=== PATIENT | male | born 1970 ===

== ENCOUNTER → 2018-03-12 | Outpatient (CLI) | payer OTHER ==
[2018-03-13 09:23] LABS: Adenovirus F 40/41 Not Detected (NOT DETECT); Astrovirus Not Detected (NOT DETECT); Campylobacter Sp Not Detected (NOT DETECT); Cryptosporidium Not Detected (NOT DETECT); Cyclospora Cayetanensis Not Detected (NOT DETECT); E. Coli O157 Not Detected (NOT DETECT); Entamoeba Histolytica Not Detected (NOT DETECT); Enteropathogenic E. coli-EPEC Not Detected (NOT DETECT); Giardia Lamblia Not Detected (NOT DETECT); Norovirus GI/GII Not Detected (NOT DETECT); Plesiomonas Shigelloides Not Detected (NOT DETECT); Rotavirus A Not Detected (NOT DETECT); Salmonella Sp Not Detected (NOT DETECT); Sapovirus Not Detected (NOT DETECT); Shiga Toxin-prod E. coli-STEC Not Detected (NOT DETECT); Shigella/Enteroin E. coli-EIEC Not Detected (NOT DETECT); Vibrio Cholerae Not Detected (NOT DETECT); Vibrio Sp Not Detected (NOT DETECT); Yersinia Enterocolitica Not Detected (NOT DETECT)
[2018-03-13 14:22] LABS: Enteroaggregative E. coli-EAEC Detected (NOT DETECT); Enterotoxigenic E. coli-ETEC Detected (NOT DETECT)
== END ==
LOC: LAB 09:21 → LAB SHORT 09:21
PROVIDERS: Nurse Practitioner Family
DX: R19.7 Diarrhea, unspecified (principal)
CPT/HCPCS: 87507

== ENCOUNTER 2020-09-10 16:48 | Emergency (ER) | payer OTHER ==
[~2020-09-10] VITALS: Ht 165.1 cm; Wt 72.6 kg
[2020-09-10] MEDS ORDERED: Amoxicillin500 MG PO (16:56)
== END 2020-09-10 17:01 | disposition home or self-care (01) ==
LOC: ER 16:48
DX: K04.7 Periapical abscess without sinus (principal)
CPT/HCPCS: 99282

== ENCOUNTER → 2022-01-18 | Outpatient (CLI) | payer OTHER ==
[~2022-01-18] MED LIST: Amoxicillin500 MG PO
[2022-01-18 14:09] LABS: Stool Occult Blood Guaiac 1 Neg (Neg)
== END ==
LOC: LAB SHORT 06:45
PROVIDERS: Physician Assistant Medical
DX: Z12.11 Encounter for screening for malignant neoplasm of colon (principal)
CPT/HCPCS: 82270

== ENCOUNTER → 2023-09-29 | Outpatient (CLI) | payer OTHER ==
[2023-09-29 20:05] LABS: BASOPHILS ABSOLUTE AUTO 0.04 K/mm3 (0.00-0.23); BASOPHILS PERCENT AUTO 1 % (0-2); EOSINOPHILS ABSOLUTE AUTO 0.05 K/mm3 (0.00-0.68); EOSINOPHILS PERCENT AUTO 1 % (0-6); Hematocrit 44.5 % (37.0-53.0); IMMATURE GRAN ABSOLUTE AUTO 0.01 K/mm3 (0.00-0.10); IMMATURE GRAN PERCENT AUTO 0 % (0-1); LYMPHOCYTES ABSOLUTE AUTO 1.84 K/mm3 (0.84-5.20); LYMPHOCYTES PERCENT AUTO 26 % (21-46); MONOCYTES ABSOLUTE AUTO 0.51 K/mm3 (0.16-1.47); MONOCYTES PERCENT AUTO 7 % (4-13); Mean Corpuscular HGB 30.3 pg (26.0-34.0); Mean Corpuscular HGB Conc 33.7 g/dL (31.5-36.5); Mean Corpuscular Volume 90 fL (80-100); Mean Platelet Volume 9.7 fL (9.1-12.4); NEUTROPHILS ABSOLUTE AUTO 4.52 K/mm3 (1.96-9.15); NEUTROPHILS PERCENT AUTO 65 % (41-73); Platelet Count 280 K/mm3 (150-400); RDW Coefficient Variation 12.8 % (11.7-14.2); RDW Standard Deviation 42.2 fL (35.1-46.3); Red Blood Cell Count 4.95 M/mm3 (4.30-5.90); White Blood Cell Count 6.97 K/mm3 (4.00-11.30)
[2023-10-02 13:09] LABS: A/G RATIO 1.7 (1.2-2.2); BILIRUBIN, TOTAL 0.5 mg/dL (0.0-1.2); CALCIUM, SERUM 9.8 mg/dL (8.7-10.2); CREATININE, SERUM 0.69 mg/dL (0.76-1.27); GLOBULIN, TOTAL 2.8 g/dL (1.5-4.5); POTASSIUM, SERUM 4.4 mmol/L (3.5-5.2); PROTEIN, TOTAL, SERUM 7.6 g/dL (6.0-8.5)
== END ==
LOC: LAB SHORT 18:57 → LAB 18:57
PROVIDERS: Nurse Practitioner Family
DX: I10 Essential (primary) hypertension (principal); R73.03 Prediabetes
CPT/HCPCS: 80053; 83036; 85025

== ENCOUNTER 2024-06-30 02:17 | Inpatient (IN) | payer OTHER ==
[~2024-06-30] VITALS: Ht 160 cm; Wt 65.7 kg
[2024-06-30 03:06] LABS: BASOPHILS ABSOLUTE AUTO 0.02 K/mm3 (0.00-0.23); BASOPHILS PERCENT AUTO 0 % (0-2); EOSINOPHILS ABSOLUTE AUTO 0.13 K/mm3 (0.00-0.68); EOSINOPHILS PERCENT AUTO 1 % (0-6); Hematocrit 32.3 % (37.0-53.0); Hemoglobin 10.7 g/dL (13.5-17.5); IMMATURE GRAN ABSOLUTE AUTO 0.03 K/mm3 (0.00-0.10); IMMATURE GRAN PERCENT AUTO 0 % (0-1); LYMPHOCYTES ABSOLUTE AUTO 1.13 K/mm3 (0.84-5.20); LYMPHOCYTES PERCENT AUTO 11 % (21-46); MONOCYTES ABSOLUTE AUTO 1.11 K/mm3 (0.16-1.47); MONOCYTES PERCENT AUTO 11 % (4-13); Mean Corpuscular HGB 29.3 pg (26.0-34.0); Mean Corpuscular HGB Conc 33.1 g/dL (31.5-36.5); Mean Corpuscular Volume 89 fL (80-100); Mean Platelet Volume 8.6 fL (9.1-12.4); NEUTROPHILS ABSOLUTE AUTO 7.72 K/mm3 (1.96-9.15); NEUTROPHILS PERCENT AUTO 76 % (41-73); Platelet Count 460 K/mm3 (150-400); RDW Coefficient Variation 12.6 % (11.7-14.2); RDW Standard Deviation 41.2 fL (35.1-46.3); Red Blood Cell Count 3.65 M/mm3 (4.30-5.90); White Blood Cell Count 10.14 K/mm3 (4.00-11.30)
[2024-06-30 03:44] LABS: Albumin, Blood 2.8 g/dL (3.4-5.0); Albumin/Globulin Ratio 0.6 (0.8-1.8); Bilirubin, Total 0.3 mg/dL (0.1-1.0); Calcium, Blood 8.3 mg/dL (8.5-10.1); Creatinine, Blood 3.61 mg/dL (0.60-1.20); Globulin, Blood 4.9 g/dL (2.2-4.0); Potassium, Blood 4.4 mmol/L (3.5-5.5); Total Protein, Blood 7.7 g/dL (6.4-8.2)
[2024-06-30 04:10] LABS: Source, Urine Clean Catch
[2024-06-30 04:21] LABS: Bilirubin, Urine Neg (Neg); Blood, Urine 5+ (Neg); Glucose Qualitative, Urine Neg (Neg); Ketones, Urine Neg (Neg); Leukocyte Esterase, Urine Neg (Neg); Nitrite, Urine Neg (Neg); Protein, Urine 3+ (Neg); Urobilinogen, Urine NORM (Normal)
[2024-06-30 04:38] LABS: Color, Urine Pale Yellow (P-Yellow)
[2024-06-30 04:39] LABS: Appearance, Urine Clear (Clear)
[2024-06-30 04:40] LABS: Bacteria Few /hpf; Red Blood Cells, Urine 50-100 /hpf (0-2); Squamous Epithelial Cells Rare /hpf (Few)
[2024-06-30] MEDS ORDERED: Loperamide HCl 2 MG Cap PO PRN (05:40)
[2024-06-30] MEDS ORDERED: FLU VACC TS2024-25(6MOS UP)/PF 45 MCG/0.5 ML SYRINGE IM SCH (05:45)
[2024-06-30] MEDS ORDERED: FentaNYL Citrate 50 MCG/ML 2 ML Injection IV PRN (05:45)
[2024-06-30] MEDS ORDERED: Ondansetron HCl 2 MG / ML 2ML Vial IV PRN (05:45)
[2024-06-30] MEDS ORDERED: NS 1,000 ML IV SCH ×2 (05:45→09:15)
[2024-06-30] MEDS ORDERED: Heparin Sodium,Porcine 5,000 UNIT/0.5 ML SDV SC SCH (09:00)
[2024-06-30 10:19] VITALS: BP 153/79
[2024-06-30 14:42] LABS: Bun/Creatinine Ratio 13.4 (12.0-20.0); Calcium, Blood 8.5 mg/dL (8.5-10.1); Creatinine, Blood 3.58 mg/dL (0.60-1.20); Potassium, Blood 4.4 mmol/L (3.5-5.5)
[2024-06-30 15:56] VITALS: BP 146/75
--- NOTE | 2024-06-30 17:36 | NUR ---
SHIFT SUMMARY PATIENT ARRIVED TO FLOOR FROM ER. NPO, ADVANCED TO CLEAR LIQUID, TOLERATING WELL SO FAR. C/O MILD NAUSEA AND RIGHT FLANK PAIN. INDEPENDENT IN ROOM. A/O X4. DECLINING PHONE DEPUTY COUNTY COUNSEL AT THIS TIME, IT IS IN ROOM. UPDATES PROVIDED TO FAMILY PER PATIENT REQUEST. CALL LIGHT IN REACH, ABLE TO MAKE NEEDS KNOWN. CARES ONGOING
[2024-06-30 19:39] VITALS: BP 134/74
[2024-07-01] MEDS ORDERED: NS 1,000 ML IV ONE (02:32)
[2024-07-01 03:39] VITALS: BP 135/73
[2024-07-01 05:55] LABS: BASOPHILS ABSOLUTE AUTO 0.03 K/mm3 (0.00-0.23); BASOPHILS PERCENT AUTO 0 % (0-2); EOSINOPHILS ABSOLUTE AUTO 0.02 K/mm3 (0.00-0.68); EOSINOPHILS PERCENT AUTO 0 % (0-6); Hematocrit 30.9 % (37.0-53.0); Hemoglobin 10.3 g/dL (13.5-17.5); IMMATURE GRAN ABSOLUTE AUTO 0.06 K/mm3 (0.00-0.10); IMMATURE GRAN PERCENT AUTO 1 % (0-1); LYMPHOCYTES ABSOLUTE AUTO 0.89 K/mm3 (0.84-5.20); LYMPHOCYTES PERCENT AUTO 7 % (21-46); MONOCYTES ABSOLUTE AUTO 1.28 K/mm3 (0.16-1.47); MONOCYTES PERCENT AUTO 11 % (4-13); Mean Corpuscular HGB 29.5 pg (26.0-34.0); Mean Corpuscular HGB Conc 33.3 g/dL (31.5-36.5); Mean Corpuscular Volume 89 fL (80-100); Mean Platelet Volume 8.7 fL (9.1-12.4); NEUTROPHILS ABSOLUTE AUTO 9.92 K/mm3 (1.96-9.15); NEUTROPHILS PERCENT AUTO 81 % (41-73); Platelet Count 444 K/mm3 (150-400); RDW Standard Deviation 42.3 fL (35.1-46.3); Red Blood Cell Count 3.49 M/mm3 (4.30-5.90)
--- NOTE | 2024-07-01 05:55 | NUR ---
SHIFT SUMMARY PT ALERT AND ORIENTED TIMES 4. PT IS ABLE TO MAKE NEEDS KNOWN TO STAFF. PT WAS RECEPTIVE TO CARE, DENIES PAIN. TELE RHYTHM S/R 82. PT CONTINUES TO HAVE NS 1000 ML INFUSION. PRESENTLY ON 2 OF 3 BAGS. PT TOLERATING WELL, NO VOCAL COMPLAINTS AND APPEARS TO BE SLEEPING THROUGH THE NIGHT WITHOUT ISSUE. REQUEST FROM PT WAS TO TURN THE HEAT UP. BED IN LOW POSITION, CALL LIGHT WITHIN REACH, RAILS TIMES 2.
[2024-07-01 06:17] LABS: Albumin, Blood 2.1 g/dL (3.4-5.0); Albumin/Globulin Ratio 0.5 (0.8-1.8); Bilirubin, Total 0.4 mg/dL (0.1-1.0); Bun/Creatinine Ratio 11.8 (12.0-20.0); Calcium, Blood 7.8 mg/dL (8.5-10.1); Creatinine, Blood 3.8 mg/dL (0.60-1.20); Globulin, Blood 4.6 g/dL (2.2-4.0); Potassium, Blood 4.2 mmol/L (3.5-5.5); Total Protein, Blood 6.7 g/dL (6.4-8.2)
[2024-07-01 07:10] VITALS: BP 142/82
[2024-07-01] MEDS ORDERED: NS 1,000 ML IV SCH (13:15)
[2024-07-01 13:54] LABS: International Normalized Ratio 1.08; Prothrombin Time Results 11.5 Sec (9.7-11.5)
[2024-07-01 14:21] LABS: Albumin, Blood 2.2 g/dL (3.4-5.0); Anion Gap 11 mmol/L (3-11); Blood Urea Nitrogen 46 mg/dL (8-24); Bun/Creatinine Ratio 11.6 (12.0-20.0); CO2, Blood 21 mmol/L (21-32); Calcium, Blood 7.8 mg/dL (8.5-10.1); Chloride, Blood 109 mmol/L (98-108); Creatinine, Blood 3.98 mg/dL (0.60-1.20); Glomerular Filtration Rate 17 (60-); Glucose, Blood 147 mg/dL (70-99); Lactate Dehydrogenase (Ld),Bld 203 U/L (100-240); Phosphorus, Blood 3.9 mg/dL (2.5-4.9); Sodium, Blood 137 mmol/L (136-145)
[2024-07-01 16:16] VITALS: BP 154/85
--- NOTE | 2024-07-01 17:06 | NUR ---
SHIFT SUMMARY: PT AOX4 IN BED RESTING. COMPLAINED OF SOME STOMACH CRAMPS AND PAIN GOT A KPAD AND PT SAYS PAIN WAS SOOTHED WITH IT. HAS IT OVER ABDOMEN. COMPLAINS OF CONSTIPATION AND FEELING COLD DESPITE COMING INTO HOSPITAL FOR SEVERE DIARHEA. VERY COOPERATIVE, INDEPENDENT, AND IN GOOD MOOD AND AFFECT. PT CURRENTLY RESTING IN BED, BED IN LOWEST POSITION, CALL LIGHT IN REACH. CONTINUING CARE.
--- NOTE | 2024-07-01 18:06 | NUR ---
THIS ELECTROMECHANICAL TECHNICIAN HAS REVIEWED AND AGREES WITH ALL NOTES AND ASSESSMENTS BY ZACK PAIGE.
[2024-07-01 19:15] VITALS: BP 145/75
[2024-07-02 04:07] VITALS: BP 134/75
[2024-07-02 07:27] LABS: Albumin, Blood 2.1 g/dL (3.4-5.0); Anion Gap 13 mmol/L (3-11); Blood Urea Nitrogen 47 mg/dL (8-24); CO2, Blood 18 mmol/L (21-32); Chloride, Blood 113 mmol/L (98-108); Creatinine, Blood 4.27 mg/dL (0.60-1.20); Glomerular Filtration Rate 16 (60-); Glucose, Blood 116 mg/dL (70-99); Phosphorus, Blood 4.1 mg/dL (2.5-4.9); Sodium, Blood 140 mmol/L (136-145)
--- NOTE | 2024-07-02 07:29 | NUR ---
SHIFT SUMMARY PT IS A&OX4, PLEASANT AND COOPERATIVE WITH CARES. VSS ON RA. PER TELEMETRY PT IS SR IN THE 80'S. DENIES CP/PRESSURE OR SOB. STATES THE K-PAD IS HELPING WITH HIS STOMACH CRAMPS. DENIES THE NEED FOR ANY PO PAIN MEDICATION. PT IS UP INDEPENDENTLY IN ROOM/BR. VOIDING IN TOILET, NO BM THIS SHIFT. TOLERATING A CLEAR LIQUID DIET, NO N/V. BED IN LOWEST POSITION, CALL LIGHT WITHIN REACH.
[2024-07-02 07:52] VITALS: BP 137/80
--- NOTE | 2024-07-02 16:48 | NUR ---
SHIFT SUMMARY: PT AOX4 NO COMPLAINTS OF PAIN. ENJOYS THE KPAD FOR PAIN. DRINKING WATER AND FINISHING HIS MEALS. NO BM, TAKEN OFF CONTACT PRECAUTIONS. HAS BAG OF NS RUNNING AT 100/HR. BED IN LOWEST POSITION AND CALL LIGHT IN REACH. CONTNUING CARE.
--- NOTE | 2024-07-02 18:15 | NUR ---
THIS GAME BREEDING FARM MANAGER HAS REVIEWED AND AGREES WITH ALL NOTES AND ASSESSMENTS BY ZACK PAIGE.
--- NOTE | 2024-07-02 18:42 | NUR ---
PT REPORTED HAVING A SWOLLEN R EAR. UPON INSPECTIONS PT'S WHOLE EAR IS VERY IRRITATED AND SWOLLEN. PT REPORTS IT IS VERY PAINFUL. DR KEE WAS NOTIFIED AND [facility]
[2024-07-02] MEDS ORDERED: CefTRIAXone Sodium 1,000 MG in NS 100 ML IV SCH (18:46)
[2024-07-02 19:23] VITALS: BP 147/84
[2024-07-02] MEDS ORDERED: Acetaminophen 500 MG Tab PO PRN (20:10)
[2024-07-02 20:54] LABS: COMPLEMENT COMPONENT 3 131 mg/dL (90-180); COMPLEMENT COMPONENT 4 26 mg/dL (10-40)
[2024-07-02] MEDS ORDERED: Lactobacil 2-S.Thermo-Bifido 1 1 Cap PO SCH (21:00)
[2024-07-03 04:08] VITALS: BP 135/82
[2024-07-03 04:35] LABS: ANTI-NUCLEAR AB ANA,IGG ELISA None Detected (None Detected)
[2024-07-03 06:07] LABS: Anion Gap 15 mmol/L (3-11); Blood Urea Nitrogen 45 mg/dL (8-24); Bun/Creatinine Ratio 9.5 (12.0-20.0); CO2, Blood 17 mmol/L (21-32); Calcium, Blood 7.8 mg/dL (8.5-10.1); Chloride, Blood 112 mmol/L (98-108); Creatinine, Blood 4.73 mg/dL (0.60-1.20); Glomerular Filtration Rate 14 (60-); Glucose, Blood 119 mg/dL (70-99); Phosphorus, Blood 5.1 mg/dL (2.5-4.9); Potassium, Blood 3.9 mmol/L (3.5-5.5); Sodium, Blood 140 mmol/L (136-145)
[2024-07-03 07:15] VITALS: BP 147/83
--- NOTE | 2024-07-03 07:49 | NUR ---
SHIFT SUMMARY PT IS A&OX4, PLEASANT AND APPRECIATIVE OF CARES. VSS ON RA. PER SUPERVISOR PERSONNEL CLERKS, PT IS SR IN THE 90'S. C/O PAIN TO HIS RIGHT EAR, IT IS SWOLLEN, MEDICATED WITH PRN 500 MG PO TYLENOL. K-PAD ON HIS ABD TO HELP WITH CRAMPS. INDEPENDENT TO BR, VOIDING IN URINAL FOR STRICT I&O, PT ALSO HAD A MEDIUM PUDDING CONSISTENCY BM. TOLERATING A CLEAR LIQUID DIET, NO N/V. BED IN LOWEST POSITION, CALL LIGHT WITHIN REACH.
[2024-07-03 14:37] LABS: Source, Urine Voided
[2024-07-03 14:57] LABS: GBM, IGG MULTIPLEX BEAD ASSAY 0 AU/mL (0-19)
[2024-07-03 15:02] LABS: Appearance, Urine Clear (Clear); Bilirubin, Urine Neg (Neg); Blood, Urine 5+ (Neg); Glucose Qualitative, Urine Neg (Neg); Ketones, Urine Neg (Neg); Leukocyte Esterase, Urine Neg (Neg); Nitrite, Urine Neg (Neg); Protein, Urine 2+ (Neg); Urobilinogen, Urine NORM (Normal)
[2024-07-03 15:25] LABS: Color, Urine Pale Yellow (P-Yellow)
[2024-07-03 15:26] LABS: Bacteria Mod /hpf; Squamous Epithelial Cells Rare /hpf (Few)
[2024-07-03 15:50] VITALS: BP 163/80
[2024-07-03 16:24] VITALS: BP 163/81
--- NOTE | 2024-07-03 16:30 | NUR ---
MD CALL PAUL CARRANZA C/O FEELING COLD. FEVER 100.9. BP ELEVATED. DR KEE CALLED AND NOTIFIED. IS PLACING ORDERS.
--- NOTE | 2024-07-03 18:08 | NUR ---
SHIFT SUMMARY MR MILLER HAS RIGHT EAR REDNESS AND SWELLING. ON CONTINUOUS IVF AT 100CC/HR. UP TO THE BATHROOM INDEPENDENTLY, USING URINAL TO MEASURE OUTPUT. FEVER 100.9 THIS AFTERNOON AND BLOOD PRESSURE ELEVATED. BLOOD CULTURES DONE AND GIVEN TYLENOL 500MG. TELEMETRY DISCONTINUED. NO C/O NAUSEA, HE SAID PAIN IS CONTROLLED. BED LOW, CALL LIGHT IN REACH
[2024-07-03 19:14] LABS: ANCA IFA PATTERN c-ANCA (None Detected)
[2024-07-03 19:29] VITALS: BP 147/78
[2024-07-04 00:22] VITALS: BP 142/77
[2024-07-04 03:09] VITALS: BP 125/73
[2024-07-04 05:42] LABS: BASOPHILS ABSOLUTE AUTO 0.03 K/mm3 (0.00-0.23); BASOPHILS PERCENT AUTO 0 % (0-2); EOSINOPHILS ABSOLUTE AUTO 0.21 K/mm3 (0.00-0.68); EOSINOPHILS PERCENT AUTO 2 % (0-6); Hematocrit 29.4 % (37.0-53.0); Hemoglobin 9.8 g/dL (13.5-17.5); IMMATURE GRAN ABSOLUTE AUTO 0.04 K/mm3 (0.00-0.10); IMMATURE GRAN PERCENT AUTO 0 % (0-1); LYMPHOCYTES ABSOLUTE AUTO 0.95 K/mm3 (0.84-5.20); LYMPHOCYTES PERCENT AUTO 9 % (21-46); MONOCYTES ABSOLUTE AUTO 0.95 K/mm3 (0.16-1.47); MONOCYTES PERCENT AUTO 9 % (4-13); Mean Corpuscular HGB 29.3 pg (26.0-34.0); Mean Corpuscular HGB Conc 33.3 g/dL (31.5-36.5); Mean Corpuscular Volume 88 fL (80-100); Mean Platelet Volume 9.1 fL (9.1-12.4); NEUTROPHILS ABSOLUTE AUTO 8.27 K/mm3 (1.96-9.15); NEUTROPHILS PERCENT AUTO 79 % (41-73); Platelet Count 444 K/mm3 (150-400); RDW Coefficient Variation 13.1 % (11.7-14.2); RDW Standard Deviation 42.3 fL (35.1-46.3); Red Blood Cell Count 3.34 M/mm3 (4.30-5.90); White Blood Cell Count 10.45 K/mm3 (4.00-11.30)
[2024-07-04 06:03] LABS: Albumin, Blood 1.9 g/dL (3.4-5.0); Anion Gap 13 mmol/L (3-11); Blood Urea Nitrogen 41 mg/dL (8-24); Bun/Creatinine Ratio 9.1 (12.0-20.0); CO2, Blood 18 mmol/L (21-32); Chloride, Blood 115 mmol/L (98-108); Creatinine, Blood 4.49 mg/dL (0.60-1.20); Glomerular Filtration Rate 15 (60-); Glucose, Blood 99 mg/dL (70-99); Potassium, Blood 3.7 mmol/L (3.5-5.5); Sodium, Blood 142 mmol/L (136-145)
[2024-07-04 06:17] LABS: Adenovirus F 40/41 Not Detected (NOT DETECT); Astrovirus Not Detected (NOT DETECT); Campylobacter Sp Not Detected (NOT DETECT); Cryptosporidium Not Detected (NOT DETECT); Cyclospora Cayetanensis Not Detected (NOT DETECT); E. Coli O157 Not Detected (NOT DETECT); Entamoeba Histolytica Not Detected (NOT DETECT); Enteroaggregative E. coli-EAEC Not Detected (NOT DETECT); Enteropathogenic E. coli-EPEC Detected (NOT DETECT); Enterotoxigenic E. coli-ETEC Not Detected (NOT DETECT); Giardia Lamblia Not Detected (NOT DETECT); Norovirus GI/GII Not Detected (NOT DETECT); Plesiomonas Shigelloides Not Detected (NOT DETECT); Rotavirus A Not Detected (NOT DETECT); Salmonella Sp Not Detected (NOT DETECT); Sapovirus Not Detected (NOT DETECT); Shiga Toxin-prod E. coli-STEC Not Detected (NOT DETECT); Shigella/Enteroin E. coli-EIEC Not Detected (NOT DETECT); Vibrio Cholerae Not Detected (NOT DETECT); Vibrio Sp Not Detected (NOT DETECT); Yersinia Enterocolitica Not Detected (NOT DETECT)
--- NOTE | 2024-07-04 06:17 | NUR ---
SHIFT SUMMARY PT WITH INTERMITTENT ABD PAIN THROUGH THE NIGHT. MEDICATED PER EMAR. PT DESCRIBES DRINKING COLD LIQUIDS MAKING THE PAIN INTENSE, AND HIS ENTIRE BODY FEELING UNWELL. PT WITH SMALL LOOSE BROWN STOOL THIS AM- SENT TO LAB FOR ORDERED TESTS. PT UP INDEPEDENTLY IN ROOM WITH STEADY GAIT. IVF STOPPED PER ORDER. SIDE RAILS UP X2, CALL LIGHT WITHIN REACH.
[2024-07-04 07:35] VITALS: BP 151/76
[2024-07-04] MEDS ORDERED: Ciprofloxacin 500 MG Tab PO SCH (09:00)
[2024-07-04 15:07] VITALS: BP 151/81
[2024-07-04] MEDS ORDERED: Ondansetron HCl 2 MG / ML 2ML Vial IV PRN (15:40)
--- NOTE | 2024-07-04 17:07 | NUR ---
SHIFT SUMMARY: NO EVENTS OR CHANGES WITH THE PATIENT THROUGHOUT THE SHIFT. HE STATES THAT HE IS FEELING WELL OVERALL. HE HAS BEEN TOLERATING LIQUID DIET, C/O NAUSEA THIS AFTERNOON; ZOFRAN GIVEN. AWAITING TO SEE HOW PATIENT'S KIDNEY FUNCTIONS DO PRIOR TO DISCHARGE. HE IS IN HIS ROOM, BEING INDEPENDENT IN THE ROOM, MAKES HIS NEEDS KNOWN, PLEASANT AND COOPERATIVE WITH CARE. PLAN OF CARE ONGOING.
--- NOTE | 2024-07-04 18:16 | NUR ---
PATIENT REPORTS NOT FEELING WELL AFTER DINNER. STATES HIS STOMACH IS UPSET AND THAT HIS FEVER IS BACK. ORAL AND TEMPORAL TEMP CHECKED 99.3. NO SIGNS OR SYMPTOMS OF DISTRESS WITH PATIENT. HE APPEARS FRUSTRATED WITH SYMPTOMS AND NOT CAUSATION TO WHY. PLAN OF CARE ONGOING.
[2024-07-04 19:30] VITALS: BP 144/78
[2024-07-05 02:18] VITALS: BP 133/77
--- NOTE | 2024-07-05 05:58 | NUR ---
SHIFT SUMMARY PT DENIES ABD PAIN/ NAUSEA THIS SHIFT. NEEDS ENCOURAGEMENT TO DRINK WATER, TAKE IN CLEAR LIQUID DIET. UP INDEPENDENTLY IN ROOM. R EAR REMAINS SWOLLEN/REDENNED. CALL LIGHT WITHIN REACH, SIDE RAILS UP X2.
[2024-07-05 06:50] LABS: BASOPHILS ABSOLUTE AUTO 0.04 K/mm3 (0.00-0.23); BASOPHILS PERCENT AUTO 0 % (0-2); EOSINOPHILS ABSOLUTE AUTO 0.17 K/mm3 (0.00-0.68); EOSINOPHILS PERCENT AUTO 2 % (0-6); Hematocrit 30.9 % (37.0-53.0); Hemoglobin 10.4 g/dL (13.5-17.5); IMMATURE GRAN ABSOLUTE AUTO 0.06 K/mm3 (0.00-0.10); IMMATURE GRAN PERCENT AUTO 1 % (0-1); LYMPHOCYTES ABSOLUTE AUTO 1.29 K/mm3 (0.84-5.20); LYMPHOCYTES PERCENT AUTO 12 % (21-46); MONOCYTES PERCENT AUTO 9 % (4-13); Mean Corpuscular HGB 29.8 pg (26.0-34.0); Mean Corpuscular HGB Conc 33.7 g/dL (31.5-36.5); Mean Corpuscular Volume 89 fL (80-100); Mean Platelet Volume 9.4 fL (9.1-12.4); NEUTROPHILS ABSOLUTE AUTO 8.39 K/mm3 (1.96-9.15); NEUTROPHILS PERCENT AUTO 77 % (41-73); Platelet Count 467 K/mm3 (150-400); RDW Coefficient Variation 13.3 % (11.7-14.2); Red Blood Cell Count 3.49 M/mm3 (4.30-5.90); White Blood Cell Count 10.95 K/mm3 (4.00-11.30)
[2024-07-05 07:18] LABS: Anion Gap 13 mmol/L (3-11); Blood Urea Nitrogen 42 mg/dL (8-24); Bun/Creatinine Ratio 8.4 (12.0-20.0); CO2, Blood 19 mmol/L (21-32); Calcium, Blood 7.8 mg/dL (8.5-10.1); Chloride, Blood 111 mmol/L (98-108); Creatinine, Blood 4.98 mg/dL (0.60-1.20); Glomerular Filtration Rate 13 (60-); Glucose, Blood 107 mg/dL (70-99); Iron Serum 47 ug/dL (65-175); Percent Saturation 32.9 % (20.0-50.0); Phosphorus, Blood 6.2 mg/dL (2.5-4.9); Potassium, Blood 3.7 mmol/L (3.5-5.5); Sodium, Blood 139 mmol/L (136-145); Total Iron Binding Capacity 143 ug/dL (250-450)
[2024-07-05 07:20] VITALS: BP 136/81
--- NOTE | 2024-07-05 07:56 | NUR ---
REVIEWED PATIENT'S LABS; KIDNEY FUNCTION NOT IMPROVED. PATIENT'S ORAL INTAKE DECREASED FROM LAST NIGHT DUE TO GI UPSET POST CLEAR LIQUID DIET DINNER. PATIENT IS VOIDING. CALL MADE TO DR. ROMAN THIS MORNING REGURARDING KIDNEY FUNCTION CONCERNS. DR. ROMAN NOTIFIED OF ABOVE. PER DR. ROMAN PATIENT FINE TO DISCHARGE AND TO FOLLOW UP WITH NEPHROLOGY OUTPATIENT AND GET LABS DONE NEXT WEEK.
[2024-07-05] MEDS ORDERED: NS 1,000 ML IV SCH (10:00)
[2024-07-05] MEDS ORDERED: MethylPREDNISolone Sod Succ 1,000 MG in Dextrose 5% 50 ML IV SCH (12:30)
[2024-07-05 14:46] VITALS: BP 143/81
--- NOTE | 2024-07-05 17:14 | NUR ---
SHIFT SUMMARY: NO EVENTS WITH PATIENT TODAY; HE IS OVERALL FEELING BETTER. TOLEREATED A FULL LIQUID LUNCH TODAY AND PLANS TO ADVANCE TO A RENAL DIET. PATIENT STARTED ON IV STERIOD MEDICATION AND FLUIDS. UPDATED THE PATIENT AND FAMILY ON PLAN; PATIENT OKAY WITH STAYING IN THE HOSPITAL FOR A COUPLE MORE DAYS IF NEEDED FOR MEDICATION ADMINISTRATION/CARE. PATIENT VOIDING AND HAVING BOWEL MOVENTS; EATING AND DRINKING. HE IS IN HIS ROOM, FAMILY AT BEDSIDE, NO SIGNS OR SYPTOMS OF DISTRESS, PLAN OF CARE ONGOING.
[2024-07-05 19:30] VITALS: BP 135/80
[2024-07-06 05:35] VITALS: BP 146/79
[2024-07-06 06:30] LABS: Anion Gap 15 mmol/L (3-11); Blood Urea Nitrogen 55 mg/dL (8-24); Bun/Creatinine Ratio 10.5 (12.0-20.0); CO2, Blood 16 mmol/L (21-32); Calcium, Blood 8.1 mg/dL (8.5-10.1); Chloride, Blood 109 mmol/L (98-108); Creatinine, Blood 5.22 mg/dL (0.60-1.20); Glomerular Filtration Rate 12 (60-); Glucose, Blood 215 mg/dL (70-99); Phosphorus, Blood 5.4 mg/dL (2.5-4.9); Potassium, Blood 3.8 mmol/L (3.5-5.5); Sodium, Blood 136 mmol/L (136-145)
--- NOTE | 2024-07-06 06:48 | NUR ---
SHIFT SUMMARY PT HAS BEEN PLEASANT AND COOPERATIVE WITH CARE THIS SHIFT. PT HAS BEEN SLEEPING COMFORTABLY THROUGH NIGHT OCCASIONALLY WAKING TO USE THE BATHROOM. PT TO HAVE DIALYSIS THIS AM, THEN BE DC'D HOME.
--- NOTE | 2024-07-06 06:49 | NUR ---
SHIFT SUMMARY PT HAS BEEN PLEASANT AND COOPERATIVE WITH CARE THIS SHIFT. PT HAS BEEN SLEEPING COMFORTABLY THROUGH NIGHT OCCASIONALLY WAKING TO USE THE BATHROOM. PT HAS TWO MORE DAYS OF ANTIBIOTICS BEFORE DC.
[2024-07-06 07:29] VITALS: BP 128/77
[2024-07-06] MEDS ORDERED: NS 250 ML IV PRN (13:20)
[2024-07-06 14:50] VITALS: BP 150/83
--- NOTE | 2024-07-06 16:12 | NUR ---
SHIFT SUMMARY: PT AOX4 INDEPENDENT TO ROOM. PENDING KIDNEY BIOPSY. IV IN R AC STARTED LEAKING, REMOVED AND NEW IV PLACED IN L HAND. IV STEROIDS GIVEN PER EMR. IND TO BATHROOM. NO COMPLAINTS FROM PT, JUST SEEMS ANXIOUS. FAMILY AT BED SIDE. PT IN LOWEST POSITION AND CALL LIGHT IN REACH. CONTINUING CARE.
--- NOTE | 2024-07-06 18:02 | NUR ---
THIS GAME MODERATOR HAS REVIEWED AND AGREES WITH ALL NOTES AND ASSESSMENTS BY ZACK PAIGE.
[2024-07-06 19:26] VITALS: BP 160/82
[2024-07-07 03:55] VITALS: BP 137/71
--- NOTE | 2024-07-07 06:20 | NUR ---
SHIFT SUMMARY PT PLEASANT, SITTING UP IN BED AT START OF SHIFT. EDUCATED PT ON NEED FOR MONITORING I&O'S AND USING URINAL FOR MEASUREMENTS. PT RECEPTIVE TO TEACHING AND VERBALIZED UNDERSTANDING. PT IN BED LYING COMFORTABLY, WATCHING TV AFTER EVENING MEDS. CONTINUING TO MONITOR. 2315, PT TURNED OFF TV FOR NIGHT AND PREPARED FOR SLEEP. PT SLEEPING COMFORTABLY AND RESTFULLY UPON ROUNDING. CALL LIGHT WITHIN REACH.
[2024-07-07 07:23] VITALS: BP 136/81
--- NOTE | 2024-07-07 16:12 | NUR ---
SHIFT SUMMARY: PT AOX4, HAVING GOOD OUTPUT AND MEASURING ACCORDINGLY. HAS BEEN PACING AROUND THE ROOM AND SLIGHTLY ANXIOUS. JUST AWAITING KIDNEY BIOPSY. TOLERATING IV STEROIDS WELL AND STILL FULLY INDEPENDENT. COMPLAINED OF THE IV CORD PULLING, CORD TAPED AND CUSHIONED WITH GAUZE. PT HAS FAMILY VISITING AND IS IN GOOD MOOD AND AFFECT. BED IN LOWEST POSITION AND CALL LIGHT IN REACH. CONTINUING CARE.
[2024-07-07 16:42] VITALS: BP 168/89
--- NOTE | 2024-07-07 18:13 | NUR ---
THIS RADIO ASSEMBLER HAS REVIEWED AND AGREES WITH ALL NOTES AND ASSESSMENTS BY ZACK PAIGE.
[2024-07-07 19:24] VITALS: BP 163/77
[2024-07-07] MEDS ORDERED: Heparin Sodium,Porcine 5,000 UNIT/0.5 ML SDV SC SCH (21:00)
[2024-07-08 04:15] VITALS: BP 147/76
[2024-07-08 05:37] LABS: BASOPHILS ABSOLUTE AUTO 0.02 K/mm3 (0.00-0.23); BASOPHILS PERCENT AUTO 0 % (0-2); EOSINOPHILS PERCENT AUTO 0 % (0-6); Hemoglobin 10.3 g/dL (13.5-17.5); IMMATURE GRAN ABSOLUTE AUTO 0.16 K/mm3 (0.00-0.10); IMMATURE GRAN PERCENT AUTO 1 % (0-1); LYMPHOCYTES PERCENT AUTO 3 % (21-46); MONOCYTES ABSOLUTE AUTO 0.48 K/mm3 (0.16-1.47); MONOCYTES PERCENT AUTO 2 % (4-13); Mean Corpuscular HGB Conc 33.2 g/dL (31.5-36.5); Mean Corpuscular Volume 87 fL (80-100); Mean Platelet Volume 9.4 fL (9.1-12.4); NEUTROPHILS ABSOLUTE AUTO 18.85 K/mm3 (1.96-9.15); NEUTROPHILS PERCENT AUTO 94 % (41-73); Platelet Count 550 K/mm3 (150-400); RDW Coefficient Variation 13.3 % (11.7-14.2); RDW Standard Deviation 43.2 fL (35.1-46.3); Red Blood Cell Count 3.55 M/mm3 (4.30-5.90); White Blood Cell Count 20.11 K/mm3 (4.00-11.30)
[2024-07-08 05:51] LABS: International Normalized Ratio 1.06; Prothrombin Time Results 11.3 Sec (9.7-11.5)
[2024-07-08 06:01] LABS: Albumin, Blood 2.2 g/dL (3.4-5.0); Anion Gap 15 mmol/L (3-11); Blood Urea Nitrogen 96 mg/dL (8-24); Bun/Creatinine Ratio 19.1 (12.0-20.0); CO2, Blood 18 mmol/L (21-32); Calcium, Blood 8.2 mg/dL (8.5-10.1); Chloride, Blood 111 mmol/L (98-108); Creatinine, Blood 5.02 mg/dL (0.60-1.20); Glomerular Filtration Rate 13 (60-); Glucose, Blood 189 mg/dL (70-99); Phosphorus, Blood 6.9 mg/dL (2.5-4.9); Potassium, Blood 3.7 mmol/L (3.5-5.5); Sodium, Blood 140 mmol/L (136-145)
--- NOTE | 2024-07-08 06:29 | NUR ---
SHIFT SUMMARY CALL FROM CT APPROX 1953. THEY WILL BE CHANGING DATES OF KIDNEY BIOPSY TO TOMORROW, AND WILL DECIDE IN AM WHICH KIDNEY TO BIOPSY FIRST. WILL BE AT BEDSIDE IN AM TO DISCUSS WITH PT THE PLAN OF ACTION. PT RECEPTIVE TO ALL INFORMATION GIVEN TO HIM. HE IS PLEASANT AND COOPERATIVE WITH HIS CARE. PT SLEEPING PEACEFULLY. CALL LIGHT WITHIN REACH. WILL RELAY TO DAY SHIFT.
[2024-07-08 07:41] VITALS: BP 157/76
[2024-07-08] MEDS ORDERED: Peg 400/Hypromellose/Glycerin 15 DROP/ML BTL LEFTEYE SCH (10:00)
[2024-07-08 16:29] VITALS: BP 150/74
--- NOTE | 2024-07-08 17:04 | NUR ---
SHIFT SUMMARY: PT AOX4 VSS AND STRICT IO. GOOD OUTPUT AND FOLLOWING DIET. WENT ON A WALK WITH TO [place]. WAITING FOR BIOPSY SCHEDULING. IMAGING CALLED TO SAY LIKELY TO BE FOLLOW UP OUTPATIENT. DR MAJANO INFORMED ABOUT IMAGING WANTING TO PUSH FOR OUTPATIENT AND PT WORSENING LABS. INFORMED THAT HE WILL CONSULT DR CLIFTON. PT HAS BEEN STABLE AND JUST ANXIOUS. DOES WELL WHEN FAMILY IS VISITING. CURRENTLY RESTING IN BED. BED IN LOWEST POSITION AND CALL LIGHT IN REACH. CONTINUING CARE.
--- NOTE | 2024-07-08 17:30 | NUR ---
THIS STEEL DETAILER HAS REVIEWED AND AGREES WITH ALL NOTES AND ASSESSMENTS BY ZACK PAIGE.
[2024-07-08 20:16] VITALS: BP 171/71
[2024-07-09 02:37] VITALS: BP 140/68
[2024-07-09 05:45] LABS: BASOPHILS ABSOLUTE AUTO 0.02 K/mm3 (0.00-0.23); BASOPHILS PERCENT AUTO 0 % (0-2); EOSINOPHILS PERCENT AUTO 0 % (0-6); Hematocrit 28.3 % (37.0-53.0); Hemoglobin 9.5 g/dL (13.5-17.5); IMMATURE GRAN ABSOLUTE AUTO 0.24 K/mm3 (0.00-0.10); IMMATURE GRAN PERCENT AUTO 2 % (0-1); LYMPHOCYTES ABSOLUTE AUTO 0.88 K/mm3 (0.84-5.20); LYMPHOCYTES PERCENT AUTO 6 % (21-46); MONOCYTES PERCENT AUTO 8 % (4-13); Mean Corpuscular HGB 29.1 pg (26.0-34.0); Mean Corpuscular HGB Conc 33.6 g/dL (31.5-36.5); Mean Corpuscular Volume 87 fL (80-100); Mean Platelet Volume 9.5 fL (9.1-12.4); NEUTROPHILS ABSOLUTE AUTO 12.64 K/mm3 (1.96-9.15); NEUTROPHILS PERCENT AUTO 84 % (41-73); Platelet Count 495 K/mm3 (150-400); RDW Coefficient Variation 13.5 % (11.7-14.2); RDW Standard Deviation 42.4 fL (35.1-46.3); Red Blood Cell Count 3.26 M/mm3 (4.30-5.90); White Blood Cell Count 14.98 K/mm3 (4.00-11.30)
--- NOTE | 2024-07-09 06:01 | NUR ---
SUMMARY: PT A/OX4, IS INDEPENDENT IN ROOM AND CALLS APPROPRIATELY TO SPECIFY NEEDS. HE USES URINAL W/STRICT I/O'S BEING MONITORED. RENAL BIOPSY STILL PENDING AND PLANNED TO CONSULT W/ D/T WORSENING LABS AND IMAGING WANTING TO F/U OUTPATIENT. KPAD REMAINS IN PLACE FOR ABDO/FLANK TENDERNESS BUT PT HAS DENIED NEEDING PRN PAIN OR NAUSEA MEDS THIS SHIFT. NO ACUTE CHANGES, VSS/AFEBRILE. WCTM AND REPORT TO DAY RN.
[2024-07-09 06:09] LABS: Albumin, Blood 2.2 g/dL (3.4-5.0); Anion Gap 16 mmol/L (3-11); Blood Urea Nitrogen 109 mg/dL (8-24); Bun/Creatinine Ratio 24.3 (12.0-20.0); CO2, Blood 18 mmol/L (21-32); Calcium, Blood 8.2 mg/dL (8.5-10.1); Chloride, Blood 113 mmol/L (98-108); Creatinine, Blood 4.48 mg/dL (0.60-1.20); Glomerular Filtration Rate 15 (60-); Glucose, Blood 150 mg/dL (70-99); Phosphorus, Blood 6.1 mg/dL (2.5-4.9); Potassium, Blood 3.7 mmol/L (3.5-5.5); Sodium, Blood 143 mmol/L (136-145)
[2024-07-09 07:39] VITALS: BP 146/79
[2024-07-09] MEDS ORDERED: NS IV ONE ×2 (12:00→16:00)
[2024-07-09] MEDS ORDERED: RITUXIMAB ABBS IV ONE ×2 (12:00→16:00)
[2024-07-09 13:01] VITALS: BP 166/81
[2024-07-09 14:56] VITALS: BP 170/90
[2024-07-09] MEDS ORDERED: HydrALAZINE HCl 20 MG / ML 1ML Vial IV PRN (15:50)
--- NOTE | 2024-07-09 16:17 | NUR ---
THIS NURSE CALLED TO NOTIFY OF PT'S ELEVATED BP. PT ASYMPTOMATIC. NEW ORDER RECEIVED AND HYDRALAZINE GIVEN.
[2024-07-09 16:49] LABS: HEPATITIS B SURFACE ANTIGEN Negative (Negative)
[2024-07-09 17:31] VITALS: BP 162/84
--- NOTE | 2024-07-09 17:50 | NUR ---
SHIFT SUMMARY PT A&OX4, AMB IND, TOLERATING PO, VOIDING, AND DENIED PAIN. PT HYPERTENSIVE AND MEDICATED PER EMAR W/ LITTLE IMPROVEMENT. THIS NURSE SPOKE W/ AT BEDSIDE DURING HIS PM ROUND ABOUT PT'S ELEVATED BP. NEW ORDER GIVEN AND PT MEDICATED. PT PLAN TO HAVE RENAL BIOPSY. NO OTHER ACUTE CHANGES. CALL LIGHT WITHIN REACH AND PT ABLE TO MAKE NEEDS KNOWN.
[2024-07-09] MEDS ORDERED: AmLODIPine Besylate 5 MG Tab PO SCH (18:00)
[2024-07-09 20:43] VITALS: BP 153/88
--- NOTE | 2024-07-10 03:49 | NUR ---
SHIFT SUMMARY ADMITTED FOR ACUTE RENAL FAILURE. FULL CODE. PLAN IS FOR NEEDLE RENAL BIOPSY. STRICT I&O'S. ON RA. A&O X4. INDEPENDENT. CONTINENT. RENAL DIET. DR. ROMAN IS RENAL CONSULT. NO NEW CONCERNS THIS SHIFT.
[2024-07-10 05:55] VITALS: BP 156/83
[2024-07-10 05:56] LABS: BASOPHILS ABSOLUTE AUTO 0.01 K/mm3 (0.00-0.23); BASOPHILS PERCENT AUTO 0 % (0-2); EOSINOPHILS ABSOLUTE AUTO 0.05 K/mm3 (0.00-0.68); EOSINOPHILS PERCENT AUTO 1 % (0-6); Hematocrit 30.7 % (37.0-53.0); Hemoglobin 10.5 g/dL (13.5-17.5); IMMATURE GRAN ABSOLUTE AUTO 0.37 K/mm3 (0.00-0.10); IMMATURE GRAN PERCENT AUTO 4 % (0-1); LYMPHOCYTES ABSOLUTE AUTO 0.58 K/mm3 (0.84-5.20); LYMPHOCYTES PERCENT AUTO 6 % (21-46); MONOCYTES ABSOLUTE AUTO 0.87 K/mm3 (0.16-1.47); MONOCYTES PERCENT AUTO 10 % (4-13); Mean Corpuscular HGB 29.7 pg (26.0-34.0); Mean Corpuscular HGB Conc 34.2 g/dL (31.5-36.5); Mean Corpuscular Volume 87 fL (80-100); Mean Platelet Volume 9.7 fL (9.1-12.4); NEUTROPHILS ABSOLUTE AUTO 7.24 K/mm3 (1.96-9.15); NEUTROPHILS PERCENT AUTO 79 % (41-73); Platelet Count 464 K/mm3 (150-400); RDW Coefficient Variation 13.7 % (11.7-14.2); RDW Standard Deviation 42.7 fL (35.1-46.3); Red Blood Cell Count 3.54 M/mm3 (4.30-5.90); White Blood Cell Count 9.12 K/mm3 (4.00-11.30)
[2024-07-10 06:27] LABS: Albumin, Blood 2.4 g/dL (3.4-5.0); Anion Gap 12 mmol/L (3-11); Blood Urea Nitrogen 101 mg/dL (8-24); Bun/Creatinine Ratio 27.4 (12.0-20.0); CO2, Blood 22 mmol/L (21-32); Calcium, Blood 8.8 mg/dL (8.5-10.1); Chloride, Blood 116 mmol/L (98-108); Creatinine, Blood 3.68 mg/dL (0.60-1.20); Glomerular Filtration Rate 19 (60-); Glucose, Blood 132 mg/dL (70-99); Potassium, Blood 4.2 mmol/L (3.5-5.5); Sodium, Blood 146 mmol/L (136-145)
[2024-07-10] MEDS ORDERED: Calcium Acetate 667 MG Gel Cap PO SCH (07:30)
[2024-07-10 08:22] VITALS: BP 161/84
[2024-07-10] MEDS ORDERED: PredniSONE 20 MG Tab PO SCH (09:00)
[2024-07-10 13:12] LABS: HEPATITIS A ANTIBODY, IGM Negative (Negative); HEPATITIS B CORE ANTIBODY, IGM Negative (Negative); HEPATITIS B SURFACE ANTIGEN Negative (Negative); HEPATITIS C AB CIA INTERP Negative (Negative); HEPATITIS C ANTIBODY CIA INDEX 0.15 IV
[2024-07-10] MEDS ORDERED: AMLO5 PO (15:06)
[2024-07-10] MEDS ORDERED: PRED20 PO (15:06)
[2024-07-10] MEDS ORDERED: Calcium Acetat667 MG PO (15:06)
--- NOTE | 2024-07-10 18:21 | NUR ---
DISCHARGE: PT D/C @1815 INDEPENDENTLY WITH FAMILY. PT [facility] @1430 FOR INITAL INTAKE FOR INFUSIONS. PT AWARE TO CALL FOR FOLLOW-UP APPOINTMENTS WITH DR. Gorman AND PCP. PT FRIEND AND PRESENT AT TIME OF DISCHARGE. PT FRIEND ABLE TO INTERPRET D/C INSTRUCTIONS. IV REMOVED BY COURT REPORTER W/O COMPLICATIONS. D/C INSTRUCTIONS PRINTED IN [place] REGARDING NEW MEDICATIONS AND RENAL DIET. NO FURTHER QUESTIONS AT TIME OF D/C.
== END 2024-07-10 18:17 | disposition home or self-care (01) | DRG 300 ==
LOC: ER 02:17 → MEDS 05:39 → ERHOLD 05:39 → MEDS 10:11 → ENPENDDIS 07-10 16:32 → MEDS 07-10 18:17
PROVIDERS: Emergency Medicine; Hospitalist; Internal Medicine; ADMIT Internal Medicine
DX: I77.82 Antineutrophilic cytoplasmic antibody [ANCA] vasculitis (principal); E87.20 Acidosis, unspecified; N17.9 Acute kidney failure, unspecified; E86.0 Dehydration; K52.9 Noninfective gastroenteritis and colitis, unspecified; I10 Essential (primary) hypertension; H93.8X1 Other specified disorders of right ear; D64.9 Anemia, unspecified; R73.9 Hyperglycemia, unspecified; T38.0X5A Adverse effect of glucocorticoids and synthetic analogues, initial encounter; Z90.49 Acquired absence of other specified parts of digestive tract
CPT/HCPCS: 36415; 51798; 74176; 80048; 80053; 80069; 80074; 81001; 82570; 83516; 83540; 83550; 83615; 83690; 83880; 84156; 84300; 85025; 85610; 85730; 86037; 86038; 86160; 87040; 87086; 87340; 87507; 97161; 99285-25; A9270; J0360; J0696; J1644; J2405; J2919; J7030; J7050; J7512

== ENCOUNTER 2024-07-23 15:26 | Inpatient (IN) | payer OTHER ==
[~2024-07-23] VITALS: Ht 160 cm; Wt 60.9 kg
[~2024-07-23 15:26] MED LIST changes: +AMLO5 PO; +Calcium Acetat667 MG PO; +PRED20 PO
[2024-07-23] MEDS ORDERED: Ondansetron Odt8 MG MM (18:06)
[2024-07-23 18:21] LABS: BASOPHILS ABSOLUTE AUTO 0.01 K/mm3 (0.00-0.23); BASOPHILS PERCENT AUTO 0 % (0-2); EOSINOPHILS ABSOLUTE AUTO 0.14 K/mm3 (0.00-0.68); EOSINOPHILS PERCENT AUTO 1 % (0-6); Hematocrit 27.7 % (37.0-53.0); Hemoglobin 9.2 g/dL (13.5-17.5); IMMATURE GRAN ABSOLUTE AUTO 0.05 K/mm3 (0.00-0.10); IMMATURE GRAN PERCENT AUTO 1 % (0-1); LYMPHOCYTES ABSOLUTE AUTO 0.79 K/mm3 (0.84-5.20); LYMPHOCYTES PERCENT AUTO 7 % (21-46); MONOCYTES ABSOLUTE AUTO 0.77 K/mm3 (0.16-1.47); MONOCYTES PERCENT AUTO 7 % (4-13); Mean Corpuscular HGB 29.8 pg (26.0-34.0); Mean Corpuscular HGB Conc 33.2 g/dL (31.5-36.5); Mean Corpuscular Volume 90 fL (80-100); Mean Platelet Volume 10.5 fL (9.1-12.4); NEUTROPHILS ABSOLUTE AUTO 9.25 K/mm3 (1.96-9.15); NEUTROPHILS PERCENT AUTO 84 % (41-73); Platelet Count 281 K/mm3 (150-400); RDW Coefficient Variation 14.1 % (11.7-14.2); RDW Standard Deviation 45.6 fL (35.1-46.3); Red Blood Cell Count 3.09 M/mm3 (4.30-5.90); White Blood Cell Count 11.01 K/mm3 (4.00-11.30)
[2024-07-23 18:31] LABS: Calcium, Ionized (POC) 0.96 mmol/L (1.10-1.46); Chloride (POC) 97 mmol/L (98-108); Creatinine (POC) 8.7 mg/dL (0.8-1.3); Glucose (ISTAT POC) 116 mg/dL (70-99); Hemoglobin (POC) 9.2 g/dL (13.5-17.5); Potassium (POC) 5.7 mmol/L (3.5-5.5); Sodium (POC) 125 mmol/L (135-148); Total CO2 (POC) 19 mmol/L (21-32)
[2024-07-23 18:40] LABS: Calcium, Blood 8.1 mg/dL (8.5-10.1); Creatinine, Blood 7.85 mg/dL (0.60-1.20); Potassium, Blood 5.5 mmol/L (3.5-5.5)
[2024-07-23 18:58] LABS: Source, Urine Clean Catch
[2024-07-23 19:03] LABS: Appearance, Urine Hazy (Clear); Bilirubin, Urine Neg (Neg); Blood, Urine 5+ (Neg); Color, Urine Yellow (P-Yellow); Glucose Qualitative, Urine Neg (Neg); Ketones, Urine Neg (Neg); Leukocyte Esterase, Urine 2+ (Neg); Nitrite, Urine Neg (Neg); Protein, Urine 3+ (Neg); Specific Gravity, Urine 1.015 (1.003-1.022); Urobilinogen, Urine NORM (Normal)
[2024-07-23] MEDS ORDERED: Albuterol 2.5 MG/3 ML VIAL INH SCH (19:10)
[2024-07-23] MEDS ORDERED: Dextrose 50% 50 ML Syringe IV ONE (19:10)
[2024-07-23] MEDS ORDERED: Insulin Regular 100 Unit/ML 1ML Dose IV ONE (19:10)
[2024-07-23] MEDS ORDERED: Calcium Gluconate 10% 100 MG/ML INJ IV ONE (19:10)
[2024-07-23] MEDS ORDERED: Sodium Polystyrene Sulfonate 15GM / 60ML BTL PO ONE (19:10)
[2024-07-23] MEDS ORDERED: Dextrose 50% 50 ML Vial IV ONE (19:15)
[2024-07-23 19:18] LABS: Red Blood Cells, Urine TNTC /hpf (0-2); White Blood Cells, Urine 25-50 /hpf (0-5)
[2024-07-23 19:19] LABS: Renal Epithelial Few /hpf (0-Rare)
[2024-07-23 19:20] LABS: Bacteria Many /hpf; Squamous Epithelial Cells Not Seen /hpf (Few)
[2024-07-23] MEDS ORDERED: FLU VACC TS2024-25(6MOS UP)/PF 45 MCG/0.5 ML SYRINGE IM ONE (22:15)
[2024-07-23] MEDS ORDERED: NS 1,000 ML IV SCH (23:00)
[2024-07-23 23:27] LABS: Creatinine, Urine Random 48.8 mg/dL (27.00-270.00)
[2024-07-23 23:58] LABS: Microalb/Creat Ratio UR, Rand 1262.3 mg/g (0.000-30.000)
[2024-07-24] VITALS (13 sets, daily range): BP systolic 118–140; BP diastolic 65–76
[2024-07-24] MEDS ORDERED: AMLODIPINE BESYL5 MG PO (00:59)
[2024-07-24] MEDS ORDERED: SULTRIDS PO (01:03)
[2024-07-24] MEDS ORDERED: CefTRIAXone Sodium 1,000 MG in NS 100 ML IV SCH (03:00)
[2024-07-24 03:45] LABS: BASOPHILS ABSOLUTE AUTO 0.01 K/mm3 (0.00-0.23); BASOPHILS PERCENT AUTO 0 % (0-2); EOSINOPHILS ABSOLUTE AUTO 0.16 K/mm3 (0.00-0.68); EOSINOPHILS PERCENT AUTO 2 % (0-6); Hemoglobin 10.1 g/dL (13.5-17.5); IMMATURE GRAN ABSOLUTE AUTO 0.03 K/mm3 (0.00-0.10); IMMATURE GRAN PERCENT AUTO 0 % (0-1); LYMPHOCYTES ABSOLUTE AUTO 0.58 K/mm3 (0.84-5.20); LYMPHOCYTES PERCENT AUTO 6 % (21-46); MONOCYTES ABSOLUTE AUTO 0.64 K/mm3 (0.16-1.47); MONOCYTES PERCENT AUTO 6 % (4-13); Mean Corpuscular HGB 29.4 pg (26.0-34.0); Mean Corpuscular HGB Conc 33.7 g/dL (31.5-36.5); Mean Corpuscular Volume 87 fL (80-100); Mean Platelet Volume 9.5 fL (9.1-12.4); NEUTROPHILS ABSOLUTE AUTO 9.06 K/mm3 (1.96-9.15); NEUTROPHILS PERCENT AUTO 87 % (41-73); Platelet Count 286 K/mm3 (150-400); RDW Coefficient Variation 13.8 % (11.7-14.2); RDW Standard Deviation 43.1 fL (35.1-46.3); Red Blood Cell Count 3.44 M/mm3 (4.30-5.90); White Blood Cell Count 10.48 K/mm3 (4.00-11.30)
[2024-07-24] MEDS ORDERED: Ondansetron 8 MG SoluTab MM PRN (04:35)
--- NOTE | 2024-07-24 06:37 | NUR ---
SHIFT SUMMARY 0045 RECIEVED PT FROM ED VIA STRETCHER, PT TRANSFERRED TO BED IN ROOM PCU 16, PT ALERT AND ORIENTED X4, FOLLOWS COMMANDS, ABLE TO MAKE NEEDS KNOWN, [place] SPEAKING, ABLE TO UNDERSTAND MOST MALAYSIAN HOWEVER REQUESTS SUGAR CANE FARM MANAGER FOR AM VISITS WITH ELZA ODONNELL, AFEBRILE,SINUS RHYTHM ON CARDIAC MONITORING PIV TO LEFT AC PATENT, DENEIS C/O PAIN AT THIS TIME, NOTED SLIGHT TENDERNESS TO UPPER ABD WITH PALPATION. PT STATES HE HAS BEEN NAUSEATED ALL DAY BUT NOT VOMITED SINCE YESTERDAY, VOIDS WITHOUT DIFFICULTY, NOTED URINE LIGHT PINK, PT ORIENTED TO ROOM, BED AND CALL LIGHT, SIDE RAILS UP X2
[2024-07-24 07:33] LABS: Albumin, Blood 2.2 g/dL (3.4-5.0); Anion Gap 18 mmol/L (3-11); Blood Urea Nitrogen 113 mg/dL (8-24); Bun/Creatinine Ratio 13.9 (12.0-20.0); CO2, Blood 20 mmol/L (21-32); Calcium, Blood 8.4 mg/dL (8.5-10.1); Chloride, Blood 99 mmol/L (98-108); Creatinine, Blood 8.15 mg/dL (0.60-1.20); Glomerular Filtration Rate 7 (60-); Glucose, Blood 109 mg/dL (70-99); Phosphorus, Blood 6.4 mg/dL (2.5-4.9); Potassium, Blood 5.7 mmol/L (3.5-5.5); Sodium, Blood 131 mmol/L (136-145)
[2024-07-24] MEDS ORDERED: PredniSONE 20 MG Tab PO SCH (09:00)
[2024-07-24] MEDS ORDERED: Enoxaparin 30 MG/0.3 ML SYR SC SCH (09:00)
[2024-07-24] MEDS ORDERED: AmLODIPine Besylate 5 MG Tab PO SCH (09:00)
[2024-07-24] MEDS ORDERED: Sodium Bicarb 8.4% Inj 75 MEQ in Sodium Chloride 0.45% 1,000 ML IV SCH ×2 (09:25→11:30)
[2024-07-24] MEDS ORDERED: Calcium Acetate 667 MG Gel Cap PO SCH (11:30)
[2024-07-24] MEDS ORDERED: Sodium Zirconium Cyclosilicate 10 GM Packet PO STA (16:44)
--- NOTE | 2024-07-24 17:13 | NUR ---
END OF SHIFT NOTE: NO ACUTE EVENTS THIS SHIFT. PT A/OX4, PLEASANT & COOPERATIVE W/ ALL CARE. PRIMARILY SPEAKS [place] BUT ABLE TO COMMUNICATE NEEDS & FOLLOW COMMANDS IN [place]. BLOCK PAVER PHONE AT BEDSIDE. HR 60-70'S, SINUS RHYTHM ON TELE. SBP 110-120'S, DENIES CHEST PAIN/PRESSURE. SPO2 >95% ON ROOM AIR, RESPIRATIONS EVEN & UNLABORED. AFEBRILE. PT ABLE TO AMBULATE TO RESTROOM INDEPENDENTLY TO VOID. 825ML URINE OUTPUT OF TIME OF THIS NOTE. URINE NOTED TO BE YELLOW W/ PINK TINGE. SODIUM BICARB INFUSING PER ORDERS. PT DENIES N/V TODAY, TOLERATING PO INTAKE WELL. MEDICAL W/ TELE STATUS. NO OTHER NEEDS AT THIS TIME. CALL LIGHT IN REACH.
[2024-07-24] MEDS ORDERED: Sodium Zirconium Cyclosilicate 10 GM Packet PO SCH (18:00)
--- NOTE | 2024-07-24 19:16 | NUR ---
REPORT TO HUNTER DIXON AT [facility]. AWAITING TRANSPORT AT THIS TIME.
--- NOTE | 2024-07-24 19:48 | NUR ---
PT IS BEING PICKED UP BY EMS IN TRANSPORT TO [facility] FOR PLASMA EXCHANGE. PT HAS STABLE VITAL SIGNS, REPORT WAS CALLED BY JASPER. DR. BAUTISTA WILL BE THE PHYSCIAN ACCEPTING HIM. NO OTHER INTERVENTIONS.
[2024-07-25 21:35] LABS: ANTI-NUCLEAR AB ANA,IGG ELISA None Detected (None Detected)
[2024-07-26 07:56] LABS: GBM, IGG MULTIPLEX BEAD ASSAY 0 AU/mL (0-19); MYELOPEROXIDASE (MPO) AB,IGG 0 AU/mL (0-19); SERINE PROTEINASE 3 PR3 AB,IGG 321 AU/mL (0-19)
[2024-07-26 22:22] LABS: MYELOPEROXIDASE (MPO) AB,IGG 0 AU/mL (0-19); SERINE PROTEINASE 3 PR3 AB,IGG 350 AU/mL (0-19)
== END 2024-07-24 19:45 | disposition short-term general hospital (02) | DRG 300 ==
LOC: ER 15:26 → ERHOLD 22:13 → PCU 22:13
PROVIDERS: Emergency Medicine; Family Medicine; Hospitalist; ADMIT Internal Medicine
DX: I77.82 Antineutrophilic cytoplasmic antibody [ANCA] vasculitis (principal); E87.1 Hypo-osmolality and hyponatremia; E87.20 Acidosis, unspecified; N17.9 Acute kidney failure, unspecified; N05.9 Unspecified nephritic syndrome with unspecified morphologic changes; Z28.89 Immunization not carried out for other reason; Z90.49 Acquired absence of other specified parts of digestive tract; Z79.899 Other long term (current) drug therapy; R31.9 Hematuria, unspecified; E87.5 Hyperkalemia; I10 Essential (primary) hypertension
CPT/HCPCS: 36415; 74176; 80047; 80048; 80069; 81001; 82043; 82570; 83516; 84132; 84300; 84484; 85014; 85025; 86038; 87086; 93005; 93010; 99284-25; A9270; J0696; J1650; J7030; J7512

== ENCOUNTER 2025-05-14 08:29 | Day surgery (SDC) | payer OTHER ==
[~2025-05-14] VITALS: Ht 162.6 cm; Wt 64.6 kg
[~2025-05-14 08:29] MED LIST changes: +AMLODIPINE BESYL5 MG PO; +FAMO20 PO; +Ondansetron Odt8 MG MM; -PRED20 PO; +PRED5 PO; +SULTRIDS PO
[2025-05-14 09:15] VITALS: BP 148/72
--- NOTE | 2025-05-14 09:30 | NUR ---
Pre-Op teaching done. Pt verbalizes understanding. Patient confirms NPO status and agrees with scheduled surgery. Patient states colon prep results light yellow. Patient States Post-Procedure ride home has been arranged.
[2025-05-14] MEDS ORDERED: Benzocaine Oral Spray 0.5ML UD MT ONE (10:25)
--- NOTE | 2025-05-14 10:44 | NUR ---
05/14/25 Lei4 Audrey Spence CONFIRMED AND REVIEWED H&P, MEDCICATIONS, ALLERGIES, MEDICAL HISTORY, RESPIRATORY HISTORY, VITAL SIGNS, 3-LEAD EKG, CONSENTS, AND PHYSICIAN ORDERS. PATIENT CONFIRMS NPO STATUS AND AGREES WITH SCHEDULED PROCEDURE. MONITOR INTACT WITH CONTINUOUS PULSE OXIMETRY, CAPNOGRAPHY, 3-LEAD EKG, INTERMITTENT BP. SUPPLEMENTAL O2 TO BE TITRATED THROUGHOUT PROCEDURE TO MAINTAIN O2 SATURATION ABOVE 90%. PATIENT DETERMINED TO BE ASA APPROPRIATE MAC PRIOR TO START OF PROCEDURE BY . DR. MITCHELL PROVIDING MAC-SEE ANESTHESIA RECORD.
[2025-05-14] MEDS ORDERED: Dexamethasone Sod Phos 10 MG/ML 1ML VIAL ONE (10:47)
[2025-05-14 11:30] VITALS: BP 128/76
--- NOTE | 2025-05-14 11:31 | NUR ---
Patient up to Ambulate independently. Gait steady. Discharge instructions reviewed with patient. Patient verbalizes understanding. Copy given to patient to take home. Patient States Post-Procedure ride home has been arranged. Discharged via wheelchair to private car for ride home. Pt belongings returned to pt.
== END 2025-05-14 11:38 | disposition home or self-care (01) ==
LOC: ORSCMMR 08:29 → ORD 10:15 → ORSCMMR 10:30 → ORD 10:45 → ORSCMMR 11:38
PROVIDERS: Internal Medicine Gastroenterology
PROC: 0DJD8ZZ Inspection of Lower Intestinal Tract, Via Natural or Artificial Opening Endoscopic (ICD-10-PCS; principal; 2025-05-14 10:30)
PROC: 0DB78ZX Excision of Stomach, Pylorus, Via Natural or Artificial Opening Endoscopic, Diagnostic (ICD-10-PCS; principal; 2025-05-14 10:30)
PROC: 0DB98ZX Excision of Duodenum, Via Natural or Artificial Opening Endoscopic, Diagnostic (ICD-10-PCS; principal; 2025-05-14 10:30)
DX: K21.9 Gastro-esophageal reflux disease without esophagitis (principal); D46.4 Refractory anemia, unspecified; K29.70 Gastritis, unspecified, without bleeding; I12.9 Hypertensive chronic kidney disease with stage 1 through stage 4 chronic kidney disease, or unspecified chronic kidney disease; I77.82 Antineutrophilic cytoplasmic antibody [ANCA] vasculitis; Z79.899 Other long term (current) drug therapy
CPT/HCPCS: 88305; 88341; 88342; A9270; J1100; J2704; J7120